=== PATIENT | male | born 1980 | race Caucasian/White ===

== ENCOUNTER 2024-03-08 15:03 | Outpatient (CLI) | payer MEDICAID, SELFPAY | END 2024-03-08 15:04 | disposition home or self-care (01) | DX: M25.50 Pain in unspecified joint (principal); R06.02 Shortness of breath | CPT/HCPCS: 80053; 85379; 85651; 86038; 86140; 86618 ==

== ENCOUNTER 2024-03-18 10:58 | Outpatient (CLI) | payer MEDICAID, SELFPAY | END 2024-03-18 10:59 | disposition home or self-care (01) | PROVIDERS: Visit Provider Registered Nurse | DX: I10 Essential (primary) hypertension (principal); M25.50 Pain in unspecified joint; R10.9 Unspecified abdominal pain; R06.02 Shortness of breath | CPT/HCPCS: 82306; 82550; 82607; 83880; 84443; 86703 ==

== ENCOUNTER 2024-03-19 10:05 | Outpatient (CLI) | payer MEDICAID, SELFPAY | END 2024-03-19 10:06 | disposition home or self-care (01) | PROVIDERS: PCP Registered Nurse; Referring Provider Registered Nurse; Visit Provider Registered Nurse | DX: R10.84 Generalized abdominal pain (principal) | CPT/HCPCS: 87338 ==